=== PATIENT | male | born 1960 | race Caucasian/White ===

== ENCOUNTER 2018-03-06 08:30 | Outpatient (RCR) | payer OTHER, SELFPAY | END 2018-03-20 16:01 | disposition home or self-care (01) | LOC: PT 08:30 | PROVIDERS: Visit Provider Nurse Practitioner Family | DX: M79.672 Pain in left foot (principal); M79.671 Pain in right foot; M25.562 Pain in left knee; M25.561 Pain in right knee; M62.81 Muscle weakness (generalized); T14.8XXA Other injury of unspecified body region, initial encounter | CPT/HCPCS: 97033; 97110; 97163 ==

== ENCOUNTER → 2020-05-10 12:33 | Outpatient (CLI) | payer MEDICARE, MEDICAID, SELFPAY ==
[2020-05-10 14:30] LABS: Coronavirus 19 IgG Antibody Negative (Negative); Coronavirus 19 IgM Antibody Negative (Negative)
== END ==
PROVIDERS: PCP Nurse Practitioner Family; Visit Provider Nurse Practitioner Family
DX: Z03.818 Encounter for observation for suspected exposure to other biological agents ruled out (principal); R50.9 Fever, unspecified; R05 Cough; J40 Bronchitis, not specified as acute or chronic
CPT/HCPCS: 36415; 86328; U0003

== ENCOUNTER 2025-03-18 13:43 | Outpatient (CLI) | payer MEDICARE, SELFPAY ==
--- OUTSIDE RECORDS SUMMARY | 2025-02-26 09:00 | XMS_ITS | Encounter Summary ---
Author Organization [facility] Address [address] [facility] [place] [place] [address] Care Team Providers Care Pot Reliner Name Role Phone Zaki Edel Ayala APRN Primary Care Provider [phone]- [phone] Reason for Visit * Reason Comments Coronary Artery Disease Shortness of Breath Edema Dizziness Encounter Details Date Type Department Care Team (Late st Contact Info) Description 02/26/2025 9:00 AM EDT Office Visit [facility] Cardiology - [place] [address] [place] [address] Maribel Rojas PA-C [address] [address] Coronary artery disease involving [place] coronary artery of [place] heart without angina pectoris (Primary Dx); Essential hypertension; Dyslipidemia Social History Tobacco Use Types Packs/Day Years Used Date Smoking Tobacco: Former Cigarettes Q uit: 01/30/2009 Smokeless Tobacco: Never Alcohol Use Standard Drinks/Week Comments Not Currently 0 (1 standard drink = 0.6 oz pur e alcohol) caffeine use Utilities Answer Date Recorded In the past 12 months, has t he electric, gas, oil, or water company threatened to shut off services in your home? No 12/30/2023 Interpersonal Safety Answer Date Record ed How often does anyone, pooja chauhan family and friends, physically hurt you? Never 12/30/2023 How often does anyone, pooja chauhan family and friends, insult or talk down to you? Never 12/30/2023 How often does anyone, pooja chauhan family and friends, threaten you with harm? Never 12/30/2023 How often does anyone, inclu ding family and friends, scream or curse at you? Never 12/30/2023 Housing Stability Answer Date Recorded What is your living situation today? I have a [facility] place to live 12/30/[address] you li ve. Do you have problems with any of the following? None of the above 12/30/2023 Food Insecurity Answer Date Recorded Within the past 12 months, y ou worried that your food would run out before you got money to buy more. Never true 12/30/2023 Within the past 12 months, t he food you bought just didn't last and you didn't have money to get more. Never true 12/30/2023 Transportation Needs Answer Date Record ed In the past 12 months, has l ack of reliable transportation kept you from medical appointments, meetings, work or from getting things needed for daily living? No 12/30/2023 Financial Resource Strain Answer Date R ecorded How hard is it for you to pa y for the very basics like food, housing, medical care, and heating? Would you say it is: Somewhat hard 12/30/2023 Employment Answer Date Recorded Do you want help finding or keeping work or a job? I do not need or want help 12/30/2023 Family and Community Support Answer Luis e Recorded If for any reason you need h elp with day-to-day activities such as bathing, preparing meals, shopping, managing finances, etc., do you get the help you need? I get all the help I need 12/30/2023 Feeling Lonely or Isolated 0 12/29 Educational Attainment Answer Date Anand rded Do you speak a language other than Algerian at ho [place]? No 12/30/2023 Do you want help with school or training? For example, starting or completing job training or getting a high school diploma, GED or equivalent. No 12/30/2023 Physical Activity Answer Date Recorded Number of minutes of exercise per week 20 12/30/2023 Alcohol Use Answer Date Recorded 5 or More Drinks Per Day Past 12 Months 0 08/16/2024 Depression Answer Date Recorded Calculation of above two rows 0 Stress Answer Date Recorded Stress means a situation in which a person feels tense, restless, nervous, or anxious, or is unable to sleep at night because his or her mind is troubled all the time. Do you feel this kind of stress these days? Not at all 12/30/2023 Disabilities Answer Date Recorded Because of a physical, menta l, or emotional condition, do you have serious difficulty concentrating, remembering, or making decisions? (5 years or older) No 12/30/2023 Because of a physical, menta l, or emotional condition, do you have difficulty doing errands alone such as visiting a doctor's office or shopping? (15 years or older) No 12/30/2023 Substance Use Answer Date Recorded How many times in the past y ear have you used prescription drugs for non-medical reasons? Never 12/30/2023 How many times in the past year have you used il legal drugs? Never 12/30/2023 Sex and Gender Information Value Date Recorded Sex Assigned at Not on file Legal Sex Male 4:56 PM CDT Gender Identity Not on file Sexual Orientation Not on file documented as of this encounter Last Filed Vital Signs Vital Sign Reading Time Taken Comments Blood Pressure 130/66 02/26/2025 8:49 AM EDT Pulse 59 02/26/2025 8:49 AM EDT Temperature - - Respiratory Rate 20 02/26/2025 8:49 AM EDT Oxygen Saturation 98% 02/26/2025 8:49 AM EDT Inhaled Oxygen Concentration - - Weight 112.5 kg (248 lb) 02/26/2025 8:49 AM EDT Height 180.3 cm (5' 11 ) 02/26/2025 8:49 AM EDT Body Mass Index 34.59 02/26/2025 8:49 AM EDT documented in this encounter Progress Notes * Maribel Rojas PA-C - 02/26/2025 9:00 AM EDT History of Present Illness Pleasant 63-year-old gentleman introduced to me [facility]. History of OLIVERA. His digital pre press operator had given him Lasix when he complained of progressive increasing shortness of breath. He reports that he lost about 80pounds family finally convinced him to come to the emergency department because of worsening shortness of breath troponin x 2 negative EKG no acute changes chest x-ray unremarkable. [facility] He has CAD, previously known to Dr. Shah and more recently had been following with Dr. Merlene Viramontes. Presented 2013 with NSTEMI. C 99% LAD stenosis with subsequent JULIO. 50% PDA of RCA, nonobstructive disease in a nondominant left circumflex. Treated for hypertension, type II DM and hyperlipidemia. Came with exertional dyspnea and abnormal stress test. Was taken for [facility] with Dr. Kiran. Previously placed stent widely patent no other obstructive disease. Comes today for follow-up. Shortness of breath symptoms have improved since addressing issues with anxiety. No other complaints today. Complains of bilateral leg heaviness. He has good foot pulses. Has had nightmares for years. Sleep evaluations unremarkable. Review of Systems 14 point review of systems is negative except as noted in HPI. Social History Tobacco Use Smoking status: Former Current packs/day: 0.00 Types: Cigarettes Quit date: 01/30/2009 Years since quittin.0 Smokeless tobacco: Never Vaping Use Vaping status: Never Used Substance Use Topics Alcohol use: Not Currently Comment: caffeine use Drug use: Never Past Surgical History: Procedure Laterality Date APPENDECTOMY CARDIAC CATHETERIZATION COLONOSCOPY CORONARY ANGIOPLASTY WITH STENT PLACEMENT ESOPHAGOGASTRODUODENOSCOPY SKIN CANCER EXCISION Past Medical History: Diagnosis Date Arthritis CAD (coronary artery disease) Cardiomyopathy (HCC) Chest pain 12/30/2023 Chronic back pain 02/13/2023 Cirrhosis (HCC) Diabetes mellitus (HCC) Diabetic peripheral neuropathy (HCC) 02/13/2023 Gout HTN (hypertension) Hyperlipidemia Malignant melanoma of skin (HCC) 02/13/2023 Myocardial infarct (HCC) Shortness of breath Steatosis of liver 02/13/2023 Family History Problem Relation Name Age of Onset Heart disease Mother Heart attack Mother Coronary artery disease Mother Stroke Mother Coronary artery disease Father Heart disease Brother Current Outpatient Medications: aspirin 81 MG EC tablet, Take 1 tablet (81 mg total) by mouth daily., Disp: 10 tablet, Rfl: 0 carvediloL (COREG) 3.125 MG tablet, Take 1 tablet (3.125 mg total) by mouth 2 (two) times daily., Disp: , Rfl: ergocalciferol (DRISDOL) 1,250 mcg (50,000 unit) capsule, Take 1 capsule (50,000 Units total) by mouth once a week., Disp: , Rfl: ezetimibe (ZETIA) 10 mg tablet, Take 1 tablet (10 mg total) by mouth daily., Disp: , Rfl: furosemide (LASIX) 40 MG tablet, Take 1 tablet (40 mg total) by mouth as needed., Disp: , Rfl: glipiZIDE (GLUCOTROL XL) 10 MG 24 hr tablet, Take 1 tablet (10 mg total) by mouth in the morning., Disp: , Rfl: HYDROcodone-acetaminophen (NORCO 7.5-325) 7.5-325 mg per tablet, Take 1 tablet by mouth 3 (three) times daily as needed for pain., Disp: , Rfl: hydrOXYzine (ATARAX) 25 MG tablet, Take 1 tablet (25 mg total) by mouth every 8 (eight) hours as needed., Disp: , Rfl: Jardiance 25 mg tablet, Take 1 tablet (25 mg total) by mouth in the morning., Disp: , Rfl: Lantus Solostar U-100 Insulin 100 unit/mL (3 mL) InPn, Inject 35 Units under the skin 2 (two) timesdaily., Disp: , Rfl: rosuvastatin (CRESTOR) 5 MG tablet, Take 1 tablet (5 mg total) by mouth once a week., Disp: , Rfl: Symbicort 160-4.5 mcg/actuation inhaler, 2 puffs 2 (two) times daily., Disp: , Rfl: Byetta 10 mcg/dose(250 mcg/mL) 2.4 mL, Inject under the skin 2 (two) times daily before meals., Disp: , Rfl: Vitals: 02/26/25 0849 BP: 130/66 Pulse: 59 Resp: 20 SpO2: 98% Physical Exam Constitutional: No distress Lung rain clear Cardiac exam regular rate and rhythm Lab Review Component Value Date/Time WBC 6.5 12/30/2023 1559 RBC 3.84 12/30/2023 1559 HGB 13.1 12/30/2023 1559 HCT 36.2 (L) 12/30/2023 1559 Component Value Date/Time GLUCOSE 216 (H) 12/31/2023 1047 GLUCOSE 216 (H) 12/31/2023 05 BUN 46 (H) 12/31/2023 05 CREATININE 1.57 (H) 12/31/2023 0527 NA 135 (L) 12/31/2023 05 K 4.6 12/31/2023 0527 CL 101 12/31/2023 05 Component Value Date/Time AST 35 12/30/2023 1559 ALT 37 12/30/2023 1559 ALKPHOS 101 12/30/2023 1559 Component Value Date/Time CHOL 200 12/30/2023 1559 LDLCALC 126 12/30/2023 1559 HDL 43 12/30/2023 1559 TRIG 153 (H) 12/30/2023 1559 Assessment -CAD, NSTEMI, LAD PCI, residual 50% PDA/RCA in 2013 [facility] 02/05/2024 patent LAD stent, nonobstructive disease -Hypertension -Hyperlipidemia -Type II DM -Obesity -OLIVERA -DEEPALI/CKD - Nightmares Plan Complains of bilateral leg heaviness. Has good foot pulses. Nightmares for years. Go off carvedilol No other additional changes Encouraged heart healthy low-sodium diet Recommend at least 10 hours of moderate intensity exercise weekly Prescriptions are up-to-date EKG is normal Follow-up in 1 year Maribel Rojas PA-C documented in this encounter Plan of Treatment Upcoming Encounters Date Type Department Care Team (Late st Contact Info) Description 01/26/2026 8:45 AM EDT Office Visit [facility] Cardiology - [address] [address] Maribel Rojas PA-C [address] [place] [address] documented as of this encounter Procedures Procedure Name Priority Date/Time Associated Diagnosis Comments FS_MODEL_IP_ECG 12-LEAD Routine 02/26/2025 11:16 AM EDT Coronary artery disease involving [place] coronary artery of [place] heart without angina pectoris documented in this encounter Results * ECG 12 lead (02/26/2025 11:16 AM EDT) us Maribel Rojas PA-C ECG ORDERABLES Final Result documented in this encounter Visit Diagnoses Diagnosis Coronary artery disease involving [place] coronary artery of [place] heart without angina pectoris- Primary Essential hypertension Unspecified essential hypertension Dyslipidemia Other and unspecified hyperlipidemia documented in this encounter Care Teams Pot Reliner Relationship Specialty Start Date End Date Edel Haines, REFRACTORY WORKER [address] [place] [address] PCP - General Family Medicine 12/30/23 documented as of this encounter
--- OUTSIDE RECORDS SUMMARY | 2025-03-18 13:50 | XMS_ITS | Clinical Summary ---
Author Organization [facility] Address [address] [place] [address] Care Team Providers Care Swimming Pool Maintenance Supervisor Name Role Phone Edel Haines APRN Primary Care Provider [phone]- [phone] Allergies Active Allergy Reactions Criticality Noted Date Comments Penicillin Hives High 12/30/2023 Medications carvediloL (COREG) 3.125 MG tablet Take 1 tablet (3.125 mg total) by mouth 2 (two) times daily. Active glipiZIDE (GLUCOTROL XL) 10 MG 24 hr tablet Take 1 tablet (10 mg total) by mouth in the morning. Active HYDROcodone-ac etaminophen (NORCO 7.5-325) 7.5-325 mg per tablet Take 1 tablet by mouth 3 (three) times daily as needed for pain. Active Jardiance 25 mg tablet Take 1 tablet (25 mg total) by mouth in the morning. Active aspirin 81 MG EC tablet Take 1 tablet (81 mg total) by mouth daily. 10 tablet 01/01/20 24 Active hydrOXYzine (ATARAX) 25 MG tablet Take 1 tablet (25 mg total) by mouth every 8 (eight) hours as needed. 01/10/20 24 Active Lantus Solostar U-100 Insulin 100 unit/mL (3 mL) InPn Inject 35 Units under the skin 2 (two) times daily. 02/12/20 24 Active Symbicort 160-4.5 mcg/actuation inhaler 2 puffs 2 (two) times daily. 02/12/20 24 Active ezetimibe (ZETIA) 10 mg tablet Take 1 tablet (10 mg total) by mouth daily. Active rosuvastatin (CRESTOR) 5 MG tablet Take 1 tablet (5 mg total) by mouth once a week. 02/11/20 25 Active ergocalciferol (DRISDOL) 1,250 mcg (50,000 unit) capsule Take 1 capsule (50,000 Units total) by mouth once a week. Active Byetta 10 mcg/dose(250 mcg/mL) 2.4 mL Inject under the skin 2 (two) times daily before meals. Active furosemide (LASIX) 40 MG tablet Take 1 tablet (40 mg total) by mouth as needed. Active spironolactone (ALDACTONE) 100 MG tablet Take 1 tablet (100 mg total) by mouth 2 (two) times daily. 025 Discontin ued(Per Patient: Not Taking) Victoza 3-David 0.6 mg/0.1 mL (18 mg/3 mL) syringe Inject subcutaneously daily. 02/12/20 24 025 Discontin ued(Per Patient: Not Taking) Active Problems Problem Noted Date Diagnosed Date Puncture wound of left foot, initial encounter 0 05/24/2024 Cardiomyopathy 01/09/2024 Cirrhosis 01/09/2024 Diabetes mellitus 01/09/2024 Hyperlipidemia 01/09/2024 Myocardial infarct 01/09/2024 Arthritis 01/09/2024 CAD (coronary artery disease) 01/09/2024 Shortness of breath 01/09/2024 HTN (hypertension) 01/09/2024 Gout 01/09/2024 Chest pain 12/30/2023 Chronic back pain 02/13/2023 01/09/2024 Malignant melanoma of skin 02/13/202301/08 Diabetic peripheral neuropathy 02/13/2023 0 01/09/2024 Steatosis of liver 02/13/2023 01/09/2024 Encounters Date Type Department Care Team Description 02/26/2025 9:00 AM EDT Office Visit [facility] Cardiology - [address] [address] Maribel Rojas PA-C Coronary artery disease involving [place] coronary artery of [place] heart without angina pectoris (Primary Dx); Essential hypertension; Dyslipidemia from Last 3 Months Immunizations Name Administration Dates Next Due Tdap 05/24/2024 Family History Medical History Relation Name Comments Heart disease Brother Coronary artery disease Father Coronary artery disease Mother Heart attack Mother Heart disease Mother Stroke Mother Relation Name Status Comments Brother Father Mother Social History Tobacco Use Types Packs/Day Years Used Date Smoking Tobacco: Former Cigarettes Q uit: 01/30/2009 Smokeless Tobacco: Never Tobacco Cessation:Counseling Given: Not Answered Alcohol Use Standard Drinks/Week Comments Not Currently [...] harm? Never 12/30/2023 How often does anyone, pooja chauhan family and friends, scream or curse at you? Never 12/30/2023 Housing Stability Answer Date Recorded What is your living situation today? I have a [facility] place to live 12/30/2023 Think about the [...] Do you speak a language other than [place] [facility]? No 12/30/2023 Do you want help with [...] on file Sexual Orientation Not on file Last Filed Vital Signs Vital Sign Reading Time Taken Comments Blood Pressure 130/66 02/26/2025 8:49 AM EDT Pulse 59 02/26/2025 8:49 AM EDT Temperature 37.2 C (99 F) 05/24/2024 9:22 PM EDT Respiratory Rate 20 02/26/2025 8:49 AM EDT Oxygen Saturation 98% 02/26/2025 8:49 AM EDT Inhaled Oxygen Concentration - - Weight 112.5 kg (248 lb) 02/26/2025 8:49 AM EDT Height 180.3 cm (5' 11 ) 02/26/2025 8:49 AM EDT Body Mass Index 34.59 02/26/2025 8:49 AM EDT Plan of Treatment Upcoming Encounters Date Type Department Care Team (Late st Contact Info) Description 01/26/2026 8:45 AM EDT Office Visit [facility] Cardiology - [place] [address] [place] [address] Maribel Rojas PA-C [address] [facility] [address] [place] [address] Health Maintenance Due Date Last Done Comments CT Colonography 1960 Colonoscopy 1960 Colorectal Cancer Screening 1960 Diabetic Kidney Health Evalu ation (KED) 1960 FOBT/FIT 1960 Fit-DNA (Cologuard) 1960 Sigmoidoscopy 1960 Diabetic Eye Exam 1970 Diabetic foot exam 1970 Depression Screening (12+) 1972 HIV Screening 1975 Hepatitis C Screening 1978 Pneumococcal 50+ years (1 of 2 - PCV) 1979 Shingles Vaccine (Zoster) (1 of 2) 2010 Respiratory Syncytial Virus (RSV) Adult or (1 - Risk 60-74 years 1-dose series) 2020 Medicare Initial AWV G0438 10/02/2023 Hemoglobin A1C 01/09/2024 COVID-19 VACCINE (5 - 2023-2 5 season) 2024 01/31/2023, 09/15/2021, 01/20/2021, Additional history exists Influenza Vaccine (Season Ended) 2025 Tobacco Cessation Counseling and Screening (12+) 02/26/2026 02/26/2025 Lipid Panel 12/29/2026 12/30/2023 DTAP/TDAP/TD VACCINES (2 - T d or Tdap) 05/24/2034 05/24/2024 Procedures Procedure Name Priority Date/Time Associated Diagnosis Comments FS_MODEL_IP_ECG 12-LEAD Routine 02/26/2025 11:16 AM EDT Coronary artery disease involving [place] coronary artery of [place] heart without angina pectoris LIPID PANEL Add-On 12/30/2023 3:59 PM EDT from Last 3 Months or Most Recently Relevant to Health Maintenance Results * ECG 12 lead (02/26/2025 11:16 AM EDT) Maribel Rojas PA-C ECG ORDERABLES Final Result * (ABNORMAL) Lipid panel (12/30/2023 3:59 PM EDT) Triglycerides 153(H) 15 - 150 mg/dL 12/30/2023 11:26 PM EDT [facility] Cholesterol 200 50 - 200 mg/dL 12/30/2023 11:26 PM EDT [facility] Comment: 200 to 239 mg/dL = Moderate (borderline) >239 mg/dL = High HDL Cholesterol 43 40 - 60 mg/dL 12/30/2023 11:26 PM EDT [facility] Comment: >=60 mg/dL = Desirable <40 mg/dL = Increased Risk All other components are listed individually or are calculations VLDL Cholesterol 30.6 mg/dL 12/30/19 11:26 PM EDT [facility] Cholesterol/HDL ratio 4.7 12/30/2023 11:26 PM EDT [facility] LDl/HDL Ratio 3 12/30/2023 11:26 PM EDT [facility] RISK COMP 5 12/30/2023 11:26 PM EDT [facility] LDL Cholesterol, Calculated 126 mg/dL 12/30/2023 11:26 PM EDT [facility] Blood Venipuncture / Unknown 12/30/2023 3:59 PM EDT 12/30/2023 4:09 PM EDT Estuardo Mi PA-C LAB BLOOD ORDERABLES Final Result [facility] [address] [place] [address], [facility] [phone] from Last 3 Months or Most Recently Relevant to Health Maintenance Insurance [facility] MEDICARE HMO Advance Directives For more information, please contact: [phone] * Full Code (Latest Code Status on File) Date Activated Date Inactivated Comments 02/05/2024 2:15 PM 02/06/2024 4:28 AM * Full Code Date Activated Date Inactivated Comments 02/05/2024 9:36 AM 02/05/2024 2:15 PM * Full Code Date Activated Date Inactivated Comments 12/30/2023 7:13 PM 12/31/2023 3:13 PM Care Teams Swimming Pool Maintenance Supervisor Relationship Specialty Start Date End Date Edel Haines, TAPE TRANSFERRER [address] [place] [address] PCP - General Family Medicine 12/30/23
--- OUTSIDE RECORDS SUMMARY | 2025-03-18 13:50 | XMS_ITS | Referral Summary ---
Author Organization [facility] Address [address] [place] [address] Care Team Providers Care Health Counselor Name Role Phone ZakiEdel Lucy HERNÁNDEZ Primary Care Provider [phone]- [phone] Encounters Date Type Department Care Team Description 02/26/2025 9:00 AM EDT Office Visit [facility] Cardiology - [address] [phone] Maribel Rojas PA-C Coronary artery disease involving samish coronary artery of samish heart without angina pectoris (Primary Dx); Essential hypertension; Dyslipidemia from Last 3 Months Allergies Active Allergy Reactions Criticality Noted Date [...] the skin 2 (two) times daily. 02/12/20 Active Symbicort 160-4.5 mcg/actuation inhaler 2 puffs 2 (two) times daily. 02/12/20 Active ezetimibe (ZETIA) 10 mg tablet Take 1 tablet (10 mg total) by mouth daily. Active rosuvastatin (CRESTOR) 5 MG tablet Take 1 tablet (5 mg total) by mouth once a week. 02/11/20 Active ergocalciferol (DRISDOL) 1,250 mcg (50,000 unit) [...] mg/3 mL) syringe Inject subcutaneously daily. 02/12/20 025 Discontin ued(Per Patient: Not Taking) Active [...] 0 01/09/2024 Steatosis of liver 02/13/2023 01/09/2024 Immunizations Name Administration Dates Next Due Tdap 05/24/2024 Social History Tobacco Use Types Packs/Day Years [...] your living situation today? I have a [facility] place to live 12/30/2023 Think about the [...] Do you speak a language other than Palauan at ho me? No 12/30/2023 Do you want help with [...] Description 01/26/2026 8:45 AM EDT Office Visit [facility] Cardiology - [place] [address] [place] [address] Maribel Rojas PA-C [address] [place] [address] Procedures Procedure Name Priority Date/Time Associated Diagnosis Comments FS_MODEL_IP_ECG 12-LEAD Routine 02/26/2025 11:16 AM EDT Coronary artery disease involving samish coronary artery of samish heart without angina pectoris LIPID PANEL Add-On 12/30/2023 3:59 PM EDT from Last 3 Months or Most Recently Relevant to Health Maintenance Results * ECG 12 lead (02/26/2025 11:16 AM EDT) us Maribel Rojas PA-C ECG ORDERABLES Final Result * (ABNORMAL) Lipid panel (12/30/2023 3:59 PM EDT) Triglycerides 153(H) 15 - 150 mg/dL 12/30/2023 11:26 PM EDT [facility] Cholesterol 200 50 - 200 mg/dL 12/30/2023 11:26 PM EDT [facility] Comment: 200 to 239 mg/dL = Moderate (borderline) >239 mg/dL = High HDL Cholesterol 43 40 - 60 mg/dL 12/30/2023 11:26 PM EDT [facility] Comment: >=60 mg/dL = Desirable <40 mg/dL = Increased Risk All other components are listed individually or are calculations VLDL Cholesterol 30.6 mg/dL 12/30/19 11:26 PM EDT [facility] Cholesterol/HDL ratio 4.7 12/30/2023 11:26 PM EDT [facility] LDl/HDL Ratio 3 12/30/2023 11:26 PM EDT [facility] RISK COMP 5 12/30/2023 11:26 PM EDT [facility] LDL Cholesterol, Calculated 126 mg/dL 12/30/2023 11:26 PM EDT [facility] Blood Venipuncture / Unknown 12/30/2023 3:59 PM EDT 12/30/2023 4:09 PM EDT us Estuardo Mi PA-C LAB BLOOD ORDERABLES Final Result [facility] [address] [place] [address], [facility] [phone] from Last 3 Months or Most Recently Relevant to Health Maintenance Insurance [employer] MEDICARE HMO Advance Directives For more information, please contact: [phone] * Full Code (Latest Code Status on File) Date Activated Date Inactivated Comments 02/05/2024 2:15 PM 02/06/2024 4:28 AM * Full Code Date Activated Date Inactivated Comments 02/05/2024 9:36 AM 02/05/2024 2:15 PM * Full Code Date Activated Date Inactivated Comments 12/30/2023 7:13 PM 12/31/2023 3:13 PM Care Teams Health Counselor Relationship Specialty Start Date End Date Edel Haines, PERINATAL TECHNICIAN [address] [place] [address] PCP - General Family Medicine 12/30/23
--- OUTSIDE RECORDS SUMMARY | 2025-03-18 13:50 | XMS_ITS ---
Author Organization [facility] Address [address] [facility] [place] [address] Care Team Providers Care Youth Care Professional Name Role Phone Edel Haines APRN Primary Care Provider [phone] Active Problems Problem Noted Date Diagnosed Date [...] 0 01/09/2024 Steatosis of liver 02/13/2023 01/09/2024 Current Oncology Plans No current plan information found. Past Plans No past plan information found. Radiation Treatments * No radiation treatments are documented for this patient in [facility]. Treatments may have been administered in another system. Lifetime Dose Tracking * Chemical Lifetime Dose Automatic Entry Manual Entr y Radiation 434 mGy 434 mGy 0 mGy
[2025-03-18 14:30] LABS: Basophils % 0.7 % (0.1-2.0); Eosinophils # 0.4 Kmm3 (0.0-0.4); Eosinophils % 8.7 % (0.1-12.0); Hematocrit 38.2 % (42.0-52.0); Hemoglobin 12.6 g/dL (14.1-18.0); Immature Granulocytes # 0.01 10^3uL; Immature Granulocytes % 0.2 %; Lymphocytes # 1.1 K/mm3 (0.7-4.5); Lymphocytes % 23.9 % (10-50); Mean Corpuscular Hemoglobin 32.5 pg (27.0-31.2); Mean Corpuscular Volume 98.5 fl (80-94); Mean Platelet Volume 9.9 fl (7.4-10.4); Monocytes # 0.3 K/mm3 (0.1-1.0); Neutrophils # 2.7 K/mm3 (1.8-7.8); Neutrophils % 60.5 % (37.0-80.0); Nucleated Red Blood Cells # 0 10^3/uL; Nucleated Red Blood Cells % 0 %; Platelet Count 74 K/mm3 (142-424); Red Blood Count 3.88 M/mm3 (4.60-6.20); Red Cell Distribution Width 12.7 % (11.5-17.5); Red Cell Distribution Width-SD 45.8 fL; White Blood Count 4.5 K/mm3 (4.8-10.8)
[2025-03-18 15:40] LABS: Vitamin B12 759 pg/mL (239-931)
[2025-03-18 15:59] LABS: Folate 8.72 ng/mL
== END 2025-03-18 23:59 | disposition home or self-care (01) ==
LOC: LAB 13:45
PROVIDERS: PCP Nurse Practitioner; Visit Provider Internal Medicine Medical Oncology
DX: D69.6 Thrombocytopenia, unspecified (principal)
CPT/HCPCS: 36415; 82607; 82746; 85025